=== PATIENT | female | born 1995 | race African-American/Black ===

== ENCOUNTER 2020-01-25 13:10 | Emergency (ER) | payer MEDICAID ==
[~2020-01-25] VITALS: Ht 170.2 cm; Wt 77.1 kg
--- NOTE | 2020-01-25 13:14 | NUR ---
pt ambulated to bed 5, steady gait.
[2020-01-25 13:18] VITALS: BP 153/106
--- NOTE | 2020-01-25 13:22 | NUR ---
pt placed on 3 lead ecg and pulse ox.
--- NOTE | 2020-01-25 13:24 | NUR ---
dr. kramer at bedside.
--- NOTE | 2020-01-25 13:32 | NUR ---
24 Y/F PRESENTS TO ED FOR CHEST TIGHTNESS X 1 HOUR C SOB. PT WAS WATCHING TV WHEN TIGHTNESS BEGAN. TIGHTNESS IS CONTINUOUS AND PT REPORTS 7/10 PAIN. PT DENIES INJURY. PT REPORTS PAIN UNDER B BREASTS THAT IS NONRADIATING AND WORSE UPON PALPATION. PT DENIES ANY COUGH, FEVER, NAUSEA, OR HEADACHE. RR EVEN AND UNLABORED. LUNGS CLEAR. S1S2 PRESENT. ABD SOFT, NONDISTENDED, BS ACTIVE. PMH- DENIES NKDA RX- DENIES
--- NOTE | 2020-01-25 13:35 | NUR ---
EKG PERFORMED AT BEDSIDE. PT COVERED IN GOWN DURING PROCEDURE
--- NOTE | 2020-01-25 13:55 | NUR ---
CALLED LAB AND SPOKE TO LAB FOR STAT LABS TO BE DRAWN.
--- NOTE | 2020-01-25 14:21 | NUR ---
STAT LABS DRAWN AND GIVEN TO FLOOR MOLDER.
[2020-01-25 14:28] LABS: BASOPHILS # (AUTO) 0.1 K/uL (0.00-0.22); BASOPHILS % (AUTO) 0.6 % (0.0-2.0); EOSINOPHILS # (AUTO) 0.1 K/uL (0-0.4); EOSINOPHILS % (AUTO) 1.5 % (0.0-4.0); HEMATOCRIT 42.7 % (36-48); HEMOGLOBIN 14.4 g/dL (12.0-16.0); LYMPHOCYTES # (AUTO) 1.3 K/uL (2.5-16.5); LYMPHOCYTES % (AUTO) 14.4 % (20.5-51.1); MEAN CORPUSCULAR HEMOGLOBIN 29 pg (27-31); MEAN CORPUSCULAR HGB CONC 34 g/dL (33-37); MONOCYTES # (AUTO) 0.7 K/uL (0.8-1.0); MONOCYTES % (AUTO) 7.3 % (1.7-9.3); NEUTROPHILS # (AUTO) 6.9 K/uL (1.8-7.7); NEUTROPHILS % (AUTO) 76.2 % (42.2-75.2); PLATELET COUNT (AUTO) 307 K/uL (140-450); RED BLOOD CELL COUNT(AUTO) 4.96 MIL/uL (4.20-5.40); RED CELL DISTRIBUTION WIDTH 13.4 % (11.6-13.7); WHITE BLOOD COUNT (AUTO) 9.1 K/uL (4.8-10.8)
--- NOTE | 2020-01-25 14:54 | NUR ---
MOVED FROM BED 05 TO BED 04
[2020-01-25 15:04] LABS: ALBUMIN 3.7 g/dL (3.4-5.0); ANION GAP 12.1 (8-16); CARBON DIOXIDE 27.7 mmol/L (21-32); POTASSIUM 3.8 mmol/L (3.5-5.1); THYROID STIMULATING HORMONE 1.54 uIU/mL (0.34-3.74); TOTAL BILIRUBIN 0.7 mg/dL (0.0-1.0)
[2020-01-25] MEDS ORDERED: NACL 0.9% 1,000 ML IV ONE (15:10)
--- NOTE | 2020-01-25 16:30 | NUR ---
Dr. Erickson is re-evaluating the patient at bedside.
[2020-01-25 16:55] VITALS: BP 122/70
== END 2020-01-25 16:50 | disposition home or self-care (01) ==
LOC: MED 13:10
DX: R00.2 Palpitations (principal)
CPT/HCPCS: 36415; 80053; 84443; 84484; 84702; 85025; 93005; 99284; J7030; 99285